=== PATIENT | male | born 1940 | race Caucasian/White ===

== ENCOUNTER → 2017-09-24 14:31 | Outpatient (POV) | payer MEDICARE, SELFPAY | PROVIDERS: Visit Provider Dermatology | DX: Z00.00 Encounter for general adult medical examination without abnormal findings (principal) ==

== ENCOUNTER → 2021-01-11 11:41 | Outpatient (CLI) | payer MEDICARE, SELFPAY ==
[2021-01-11 12:33] LABS: Basophils % 0.3 % (0.1-2.0); Eosinophils % 0.2 % (0.1-12.0); Hematocrit 41.4 % (42.0-52.0); Hemoglobin 13.4 g/dL (14.1-18.0); Lymphocytes % 10.5 % (10-50); Mean Corpuscular HGB Conc 32.3 g/dL (31.8-35.4); Mean Corpuscular Hemoglobin 26.5 pg (27.0-31.2); Mean Corpuscular Volume 81.9 fl (80-94); Mean Platelet Volume 8.3 fl (7.4-10.4); Monocytes # 0.6 K/mm3 (0.1-1.0); Monocytes % 6.6 % (1.7-9.3); Neutrophils # 7.8 K/mm3 (1.8-7.8); Neutrophils % 82.3 % (37.0-80.0); Platelet Count 200 K/mm3 (142-424); Red Blood Count 5.05 M/mm3 (4.60-6.20); Red Cell Distribution Width 14.6 % (11.5-17.5); White Blood Count 9.5 K/mm3 (4.8-10.8)
[2021-01-11 12:39] LABS: Chloride 94 mmol/L (98-107)
[2021-01-11 12:40] LABS: Potassium 4.1 mmoL/L (3.5-5.1); Sodium 133 mmol/L (136-145)
[2021-01-11 12:42] LABS: Alanine Aminotransferase 17 U/L (12-78); Aspartate Amino Transferase 24 U/L (17-59); Blood Urea Nitrogen 14 mg/dl (9-20); Estimated Glomerular Filt Rate 72 ml/min (>60); GFR (African American) 87 ML/MIN (>60)
[2021-01-11 12:43] LABS: Albumin Level 4.1 g/dl (3.5-5.0); Albumin/Globulin Ratio 1.4 (1.1-1.8); Alkaline Phosphatase 73 U/L (38-126); Anion Gap 10.1 mEq/L (5-15); Bilirubin,Total 0.4 mg/dl (0.2-1.3); Calcium 8.7 mg/dl (8.4-10.2); Carbon Dioxide 33 mmol/L (22.0-30.0); Globulin 2.9 g/dL (1.3-3.2); Glucose 113 mg/dl (74-100)
[2021-01-11 15:22] LABS: Adenovirus F 40/41, stool Not Detected (NotDetected); Astrovirus Not Detected (NotDetected); Cryptosporidium Not Detected (NotDetected); Cyclospora Cayetanesis Not Detected (NotDetected); Entamoeba histolytica Not Detected (NotDetected); Enteroaggregative E coli Not Detected (NotDetected); Enteropathogenic E coli Not Detected (NotDetected); Enterotoxigenic E coli Not Detected (NotDetected); Giardia lamblia Not Detected (NotDetected); Norovirus Not Detected (NotDetected); Plesimonas Shigalloides, PCR Not Detected (NotDetected); Rotavirus A Not Detected (NotDetected); Salmonella, PCR Not Detected (NotDetected); Sapovirus Not Detected (NotDetected); Shiga-like toxin E coli Not Detected (NotDetected); Shigella Enterovasive E coli Not Detected (NotDetected); Vibrio Cholerae Not Detected (NotDetected); Vibrio, PCR Not Detected (NotDetected); Yersinia Entercolitica, PCR Not Detected (NotDetected)
[2021-01-11 18:59] LABS: Campylobacter Detected (NotDetected); Clostridium Difficile A/B, PCR Detected (NotDetected)
== END ==
PROVIDERS: PCP Family Medicine; Visit Provider Nurse Practitioner Family
DX: Z20.822 Contact with and (suspected) exposure to COVID-19 (principal); R19.7 Diarrhea, unspecified; R50.9 Fever, unspecified; A04.72 Enterocolitis due to Clostridium difficile, not specified as recurrent; A04.5 Campylobacter enteritis
CPT/HCPCS: 36415; 80053; 85025; 87506; U0003

== ENCOUNTER 2022-10-01 18:55 | Emergency (ER) | payer MEDICARE, SELFPAY ==
[2022-10-01] VITALS (7 sets, daily range): BP systolic 134–158; BP diastolic 76–95; PULSE 83–97; RESP 16–20; TEMP 36.7–36.9; O2SAT 95–96; BMI 31.0
--- NOTE | 2022-10-01 18:51 | ECG_ITS ---
APPROVED REPORT Exam: Resting ECG HR:94 bpm ECG Measurements Heart Rate 94 AXES NM 182 P 73 QRSd 102 QRS 60 QT 315 T 65 QTc 367 Conclusion SINUS RHYTHM NORMAL ECG UNCONFIRMED REPORT Electronically signed by : Fantasma Barnhart MD 10/02/2022 07:44:04
--- NOTE | 2022-10-01 18:57 | CT_ITS ---
PROCEDURE INFORMATION: Exam: CT Head Without Contrast Exam date and time: 10/01/2022 7:04 PM Age: 82 years old Clinical indication: Stroke-like symptoms; Generalized numbness/paresthesia; Additional info: Stroke protocol TECHNIQUE: Imaging protocol: Computed tomography of the head without contrast. Radiation optimization: All CT scans at this facility use at least one of these dose optimization techniques: automated exposure control; mA and/or kV adjustment per patient size (includes targeted exams where dose is matched to clinical indication); or iterative reconstruction. Other technique: STROKE PROTOCOL was implemented. REPORTING DATA: Count of CT and Cardiac NM exams in prior 12 months: This patient has received 0 known CTs and 0 known cardiac nuclear medicine studies in the 12 months prior to the current study. COMPARISON: No relevant prior studies available. FINDINGS: Brain: No acute intracranial hemorrhage is visualized. The magallon-white differentiation is preserved demonstrating no acute territorial type infarct. 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 The acuity of the white matter disease is indeterminate. Artifact limits evaluation of the brainstem. There is no midline shift. The prominence of extra-axial fluid within the bilateral cerebral convexities is likely contributed by cerebral volume loss/atrophy, although subdural hygromas cannot be excluded. Within the right frontal convexity, there is an extra-axial mass measuring 1.4 x 0.8 cm, likely representing a meningioma. Dural metastasis is within the differential. Cerebral ventricles: There is moderate prominence of sulci, with volume loss of the bilateral cerebral hemispheres and mild ventricular prominence, compatible with atrophy. Paranasal sinuses: Mucosal thickening of a few left anterior ethmoid air cells. Mastoid air cells: No mastoid effusion. Orbital cavities: Bilateral orbital lens implants. Bones/joints: The calvarium demonstrates no evidence for a depressed fracture. The posterior C1 arch is unfused. Soft tissues: Unremarkable. Vasculature: Intracranial atherosclerosis visualized. IMPRESSION: 1. No acute intracranial hemorrhage or acute territorial type infarct. 2. 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 3. Moderate atrophy. 4. Within the right frontal convexity, there is an extra-axial mass measuring 1.4 x 0.8 cm, likely representing a meningioma. Dural metastasis is within the differential. This can be further evaluated with MRI, as recommended below. 5. Additional findings described above. 6. If further evaluation is clinically indicated, an MRI of the brain with/without contrast is recommended. ASSESSMENT: [facility] Stroke [facility] Early CT Score (ASPECTS) = 10
--- NOTE | 2022-10-01 18:57 | PC.NURSE ---
fsbs 135
--- NOTE | 2022-10-01 18:57 | PC.NURSE ---
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
--- NOTE | 2022-10-01 19:00 | PC.NURSE ---
pt to Ct via stretcher
--- NOTE | 2022-10-01 19:13 | PC.NURSE ---
shift change report given to desrn
[2022-10-01 19:30] LABS: Basophils % 0.6 % (0.1-2.0); Eosinophils # 0.1 K/mm3 (0.0-0.4); Eosinophils % 1.7 % (0.1-12.0); Hematocrit 40.4 % (42.0-52.0); Hemoglobin 13.4 g/dL (14.1-18.0); Lymphocytes % 33.9 % (10-50); Mean Corpuscular HGB Conc 33.2 g/dL (31.8-35.4); Mean Corpuscular Hemoglobin 27.4 pg (27.0-31.2); Mean Corpuscular Volume 82.5 fl (80-94); Mean Platelet Volume 8.3 fl (7.4-10.4); Monocytes # 0.5 K/mm3 (0.1-1.0); Monocytes % 7.5 % (1.7-9.3); Neutrophils # 3.4 K/mm3 (1.8-7.8); Neutrophils % 56.3 % (37.0-80.0); Platelet Count 282 K/mm3 (142-424); Red Blood Count 4.89 M/mm3 (4.60-6.20); Red Cell Distribution Width 14.4 % (11.5-17.5); White Blood Count 5.9 K/mm3 (4.8-10.8)
[2022-10-01 19:38] LABS: Anion Gap 5.8 mEq/L (5-15); Blood Urea Nitrogen 16 mg/dl (9-20); Calcium 8.4 mg/dl (8.4-10.2); Carbon Dioxide 32 mmol/L (22.0-30.0); Chloride 94 mmol/L (98-107); Creatinine Clearance Estimated 72 mL/min (50-200); Estimated Glomerular Filt Rate 93 ml/min (>60); GFR (African American) 112 ML/MIN (>60); Glucose 108 mg/dl (74-100); Potassium 3.8 mmoL/L (3.5-5.1); Sodium 128 mmol/L (136-145)
[2022-10-01 19:43] LABS: INR 0.99 (0.9-1.1); Prothrombin Time 10.7 seconds (10.1-12.5)
--- NOTE | 2022-10-01 20:01 | CT_ITS ---
PROCEDURE INFORMATION: Exam: CTA Neck With Contrast Exam date and time: 10/01/2022 8:21 PM Age: 82 years old Clinical indication: Numbness; Additional info: Left sided numbness that has resolved TECHNIQUE: Imaging protocol: Computed tomographic angiography of the neck with contrast. 3D rendering (Not supervised by radiologist): MIP and/or 3D reconstructed images were created by the technologist. Radiation optimization: All CT scans at this facility use at least one of these dose optimization techniques: automated exposure control; mA and/or kV adjustment per patient size (includes targeted exams where dose is matched to clinical indication); or iterative reconstruction. Contrast material: ISOVUE; Contrast volume: 100 ml; Contrast route: INTRAVENOUS (IV); REPORTING DATA: Count of CT and Cardiac NM exams in prior 12 months: This patient has received 2 known CTs and 0 known cardiac nuclear medicine studies in the 12 months prior to the current study. COMPARISON: CT HEAD/BRAIN WO CON 10/01/2022 7:04 PM FINDINGS: Right common carotid artery: Artifact limits evaluation of the proximal right common carotid artery, without occlusion. Increased tortuosity of the right common carotid artery. Mild stenosis of the distal right common carotid artery. Atherosclerosis. Right internal carotid artery: Atherosclerosis and less than 50% stenosis of the proximal right internal carotid artery. Increased tortuosity of the right internal carotid artery. Right external carotid artery: Mild stenosis of the origin of the right external carotid artery. Left common carotid artery: Increased tortuosity of the left common carotid artery. Atherosclerosis of the carotid bifurcation. Artifact limits evaluation of the proximal left common carotid artery, without occlusion. No significant stenosis or occlusion of the remaining left common carotid artery. Left internal carotid artery: Atherosclerosis of the proximal left internal carotid artery, without stenosis using NASCET criteria. Increased tortuosity of this vessel. Left external carotid artery: No occlusion or significant stenosis. Right vertebral artery: No significant stenosis. No dissection or occlusion. Left vertebral artery: Mild stenoses are identified of the left vertebral artery, which are seen at the origin of the vessel as well as the V2 segment. Aorta: Atherosclerosis of the aortic arch. Veins: Foci of intravenous gas are identified, which are likely iatrogenic. Pharynx: Effacement of the bilateral pyriform sinuses. Calcifications are seen within the bilateral palatine tonsils. Thyroid: Thyroid nodules are visualized. There is a 1.2 cm hypodense nodule within the left thyroid lobe. Lymph nodes: A mildly enlarged right paratracheal lymph node or exophytic thyroid nodule is identified measuring 1.3 x 1.0 cm. Soft tissues: No significant soft tissue swelling. Bones/joints: The posterior C1 arch is incomplete. Mild reversal of the lordotic curvature of the cervical spine. Degenerative changes are visualized involving the cervical and upper thoracic spine. Varying degrees of spinal canal stenoses and neural foraminal narrowing at multiple cervical levels. A disc protrusion is identified at C3-C4, with mild spinal canal stenosis. Artifact limits evaluation of the spinal canal. Lungs: A small calcified nodule/granuloma is identified within the left upper lobe of the lung. IMPRESSION: 1. Mild stenosis of the distal right common carotid artery. 2. Atherosclerosis and less than 50% stenosis of the proximal right internal carotid artery. 3. Mild stenosis of the origin of the
--- NOTE | 2022-10-01 20:01 | CT_ITS ---
PROCEDURE INFORMATION: Exam: CTA Head With Contrast, Arteriography Exam date and time: 10/01/2022 8:21 PM Age: 82 years old Clinical indication: Numbness; Additional info: Left sided numbness that has resolved TECHNIQUE: Imaging protocol: Computed tomographic angiography of the head with contrast. Exam focused on the arteries. 3D rendering (Not supervised by radiologist): MIP and/or 3D reconstructed images were created by the technologist. Radiation optimization: All CT scans at this facility use at least one of these dose optimization techniques: automated exposure control; mA and/or kV adjustment per patient size (includes targeted exams where dose is matched to clinical indication); or iterative reconstruction. Contrast material: ISOVUE 370; Contrast volume: 100 ml; Contrast route: INTRAVENOUS (IV); REPORTING DATA: Count of CT and Cardiac NM exams in prior 12 months: This patient has received 2 known CTs and 0 known cardiac nuclear medicine studies in the 12 months prior to the current study. COMPARISON: CT HEAD/BRAIN WO CON 10/01/2022 7:04 PM FINDINGS: ANTERIOR CIRCULATION: Right internal carotid artery: Atherosclerosis of the right internal carotid artery, with mild and moderate stenoses. No aneurysm. Right middle cerebral artery: No occlusion or significant stenosis. No aneurysm. Right anterior cerebral artery: No occlusion or significant stenosis. No aneurysm. Left internal carotid artery: Atherosclerosis of the left internal carotid artery, with mild and moderate stenoses. There is a small vascular bulge of the distal left internal carotid artery measuring 2 mm in diameter, consistent with an infundibulum or small aneurysm. Left middle cerebral artery: No occlusion or significant stenosis. No aneurysm. Left anterior cerebral artery: No occlusion or significant stenosis. No aneurysm. POSTERIOR CIRCULATION: Right vertebral artery: No occlusion or significant stenosis. No aneurysm. Left vertebral artery: There is an ovoid area of nonspecific hypodensity or fluid adjacent to the distal V3 segment of the left vertebral artery, which is of indeterminate clinical significance. There is no significant stenosis or occlusion of the vertebral artery at this level. Minimal atherosclerosis of the left vertebral artery, without significant stenosis or occlusion. Basilar artery: No occlusion or significant stenosis. No aneurysm. Increased tortuosity of the vertebrobasilar system. Right posterior cerebral artery: Hypoplasia of the P1 segment of the right posterior cerebral artery. The right posterior communicating artery is patent. Venous enhancement limits evaluation of P3 segments, without occlusion. No significant stenosis or occlusion of the remaining right [employer]. Left posterior cerebral artery: No occlusion or significant stenosis. No aneurysm. Cavernous Sinus: A few small foci of lipomatous density are seen within the cavernous sinuses. Brain: Within the right frontal convexity, there is an extra-axial mass measuring 1.4 x 0.8 cm, likely representing a meningioma. Dural metastasis is within the differential. Vessels cross the extra-axial fluid within the cerebral convexities, without evidence of subdural fluid collections. This is likely due to cerebral volume loss. Cerebral ventricles: There is moderate prominence of sulci, with volume loss of the bilateral cerebral hemispheres and mild ventricular prominence, compatible with atrophy. Bones/joints: No acute fracture. Soft tissues: Unremarkable. IMPRESSION: 1. No large vessel arterial occlusion on this CTA head. 2. Atherosclerosis of
--- NOTE | 2022-10-01 20:28 | PC.NURSE ---
viz janet states no elvo
--- NOTE | 2022-10-01 20:56 | PC.NURSE ---
Rounded on pt and at this time. Updated on POC. Provided with drink, no other needs voiced at this time
--- NOTE | 2022-10-01 21:55 | [facility].EDNEU ---
Discharge Plan Disposition Patient Disposition: Home, Self-Care Prescriptions Prescriptions: No Action simvastatin 20 MG Tablet 20 mg PO DAILY hydrochlorothiazide 12.5 MG Capsule 12.5 mg PO DAILY omeprazole 20 MG Capsule.Dr 20 mg PO DAILY losartan 100 MG Tablet 100 mg PO DAILY oxycodone-acetaminophen 1 EACH tablet 1 tab PO Q6H PRN (Reason: Severe Pain) Qty: 12 0RF Referrals Follow up/Referrals: Greg Garcia MD [Primary Care Provider] - See instructions Vilma Paulino MD [Staff Physician] - See instructions Clinical Impressions Clinical Impression: Transient cerebral ischemia Instructions Patient Instructions: DI for Transient Ischemic Attack Discharge ED Provider: Albaro (ED)Ant Neuro HPI General Chief Complaint: Neuro Symptoms/Deficit Stated Complaint: left sided numbness Time Seen by Provider: 10/01/22 21:00 Mode of Arrival: Wheelchair Source of Information: Patient, Spouse and Medical Record Limitations: No Limitations Description of Symptoms (Recalled from ER Triage Doc. 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 Pt reports 2-3 minutes later began having L leg down to foot numbness. upon arrival to ED pt reports symptoms have resolved. Pt denies any numbness. History of Present Illness HPI Narrative: warm feeling then numbness lt upper ext and lower ext w/o fever or rash /trauma /no visual or motor sx and no speech sx - lasted about 20-25 min and now at baseline Onset (ago): hour(s) Timing confirmed by: spouse Location: left arm and left leg History of same: No Severity: moderate Context: sudden onset On Anticoagulants: No Associated symptoms: denies other symptoms Treatments Prior to Arrival: none Related Data Home Medications Medication Instructions Recorded Confirmed hydrochlorothiazide 12.5 mg capsule 12.5 mg PO DAILY Edema 03/20/18 03/20/18 losartan 100 mg tablet 100 mg PO DAILY Hypertension 03/20/18 03/20/18 omeprazole 20 mg capsule,delayed 20 mg PO DAILY GERD 03/20/18 03/20/18 release simvastatin 20 mg tablet 20 mg PO DAILY Cholesterol 03/20/18 03/20/18 Previous Rx's Medication Instructions Recorded oxycodone-acetaminophen 7.5 mg-325 1 tab PO Q6H PRN Severe Pain #12 03/20/18 mg tablet tabs Allergies Allergy/AdvReac Type Severity Reaction Status Date / Time etodolac [From Lodine] Allergy Mild Rash Verified 03/20/18 10:59 Penicillins Allergy Mild Rash Verified 03/20/18 10:59 Stroke Alert/NIH Score LOC Stroke Alert: Yes Level of Consciousness: Alert LOC Questions: Answers both correctly LOC Commands: Obeys both correctly Facial/Visual Best Gaze: Normal Visual: No visual loss Facial Palsy: Normal Motor Motor Response, Left Arm: No drift/Amputation/Fused Motor Response, Right Arm: No drift/Amputation/Fused Motor Response, Left Leg: No drift/Amputation/Fused Motor Response, Right Leg: No drift/Amputation/Fused Sensory/Language Limb Ataxia: Absent Sensory: Normal Best Language: No aphasia Dysarthria: Normal speech, Intubated or Barrier present NIH Score Stroke Risk Score: 0 PFSH PFS Disclaimer: The information contained in this section may have been updated after the patient was seen, as this information can be updated by other users. Social History Smoking Status: Unknown if ever smoked alcohol intake: current current occupational status: retired Travel in the last 8 weeks: None ROS Obtained: Yes All systems reviewed & no additional complaints except as documented Physical Exam General General appearance: alert Head Head exam: normocephalic Eye Eye exam: Present PERRL and EOMI; Absent nystagmus ENT ENT exam: Present mucous membranes moist Neck Neck exam: Present trachea midline and other (no def bruit ) Respiratory Respiratory exam: Present normal lung sounds bilaterally Cardiovascular Cardiovascular exam: Present regular rate, systolic m
--- NOTE | 2022-10-01 22:08 | PC.NURSE ---
Dr. Irvin at speaking with pt/family
== END 2022-10-01 22:35 | disposition home or self-care (01) ==
PROVIDERS: Emergency Medicine; Emergency Provider Emergency Medicine; PCP Family Medicine
DX: I63.9 Cerebral infarction, unspecified (principal)
CPT/HCPCS: 70450; 70496; 70498; 80048; 85025; 85610; 93005; 99284; 99285; Q9967

== ENCOUNTER 2024-06-21 09:15 | Outpatient (CLI) | payer MEDICARE, SELFPAY ==
--- NOTE | 2024-06-21 09:22 | XR_ITS ---
FINAL REPORT CLINICAL HISTORY: POST COVID-19 CONDITION cough FINDINGS: PA and lateral views of the chest are obtained. There is no prior exam for comparison. The cardiac and mediastinal silhouettes are within normal limits. The lungs are clear. There is no pleural effusion, pneumothorax, or acute osseous abnormality. IMPRESSION: No radiographic evidence of acute cardiac or pulmonary disease. Reviewed, Interpreted and Dictated by Elvira Estes MD Transcribed by Charo Christianson Authenticated and [facility]
== END 2024-06-21 23:59 | disposition home or self-care (01) ==
LOC: RAD 09:18
PROVIDERS: PCP Family Medicine; Visit Provider Family Medicine
DX: R05.9 Cough, unspecified (principal); U09.9 Post COVID-19 condition, unspecified
CPT/HCPCS: 71046